=== PATIENT | female | born 1945 | race Caucasian/White ===

== ENCOUNTER → 2020-11-23 | Outpatient (CLI) | payer MEDICARE ==
[~2020-11-23] MED LIST: ACET-76 PO; ACYC-57 PO; B12/1TAB PO; CEPH-376 PO; CHOL10003 PO; FLUC200T4 PO; LOPE2TAB28 PO; METF500T17 PO; RAMI5CAP57 PO; UBID200C35 PO; VITA1TAB29 PO
[2020-11-23 13:32] LABS: MEAN CORPUSCULAR HEMOGLOBIN 30.7 pg (27.0-34.8); MEAN CORPUSCULAR HGB CONC 33.7 g/dL (32.4-35.8); MEAN PLATELET VOLUME 9.9 fL (7.4-10.4); RED BLOOD COUNT 2.57 x10^6/uL (3.82-5.3); RED CELL DISTRIBUTION WIDTH 15.7 % (9.6-15.2)
[2020-11-23 13:40] LABS: ANION GAP 3 mmol/L (5-15); CALCIUM 8.6 mg/dL (8.5-10.1); CHLORIDE 111 mmol/L (98-107); CREATININE 0.67 mg/dL (0.55-1.02)
[2020-11-23 16:22] LABS: PLATELET COUNT 27 x10^3/uL (130-400)
[2020-11-23 16:23] LABS: MD YES
[2020-11-23 18:06] LABS: LYMPH#(MANUAL) 0.78 x10^3/uL (1-3.4); LYMPHS% (MANUAL) 87 % (22-44); MONOS#(MANUAL) 0.01 x10^3/uL (0.3-2.7); MONOS% (MANUAL) 1 % (2-9); REACTIVE LYMPHS # (MANUAL) 0.07 x10^3/uL (0-0); REACTIVE LYMPHS % (MANUAL) 8 % (0-0); SEG#(MANUAL) 0.04 x10^3/uL (1.8-6.8); SEGS% (MANUAL) 4 % (42-75)
[2020-11-23 18:07] LABS: <PLATELET ESTIMATE> DECREASED; LARGE PLATELETS 1+
[2020-11-23 18:08] LABS: ANISOCYTOSIS 1+; MICROCYTOSIS 1+
[2020-11-23 18:09] LABS: HYPOCHROMIA 1+; STOMATOCYTES 1+
== END | disposition home or self-care (01) ==
LOC: LAB 13:05
PROVIDERS: ATTEND Ophthalmology
DX: Z01.812 Encounter for preprocedural laboratory examination (principal); R04.2 Hemoptysis; H04.412 Chronic dacryocystitis of left lacrimal passage; H04.552 Acquired stenosis of left nasolacrimal duct; H02.115 Cicatricial ectropion of left lower eyelid
CPT/HCPCS: 36415; 80048; 85025

== ENCOUNTER 2020-12-26 17:05 | Outpatient (CLI) | payer MEDICARE ==
[2020-12-26 17:36] LABS: MEAN CORPUSCULAR HEMOGLOBIN 31.4 pg (27.0-34.8); MEAN CORPUSCULAR HGB CONC 33.1 g/dL (32.4-35.8); MEAN PLATELET VOLUME 8.9 fL (7.4-10.4); RED CELL DISTRIBUTION WIDTH 19.7 % (9.6-15.2)
[2020-12-26 17:43] LABS: ALBUMIN 3.7 g/dL (3.4-5.0); ANION GAP 10 mmol/L (5-15); CALCIUM 8.5 mg/dL (8.5-10.1); CHLORIDE 110 mmol/L (98-107)
[2020-12-26 17:46] LABS: PLATELET COUNT 29 x10^3/uL (130-400)
[2020-12-26 17:54] LABS: ANISOCYTOSIS 1+; BASOS#(MANUAL) 0.01 x10^3/uL (0-0.1); BASOS% (MANUAL) 1 % (0-1); EOS#(MANUAL) 0.04 x10^3/uL (0.0-0.4); EOS% (MANUAL) 6 % (1-7); LYMPH#(MANUAL) 0.32 x10^3/uL (1-3.4); LYMPHS% (MANUAL) 45 % (22-44); MONOS#(MANUAL) 0.06 x10^3/uL (0.3-2.7); MONOS% (MANUAL) 9 % (2-9); OVALOCYTES 1+; SEG#(MANUAL) 0.27 x10^3/uL (1.8-6.8); SEGS% (MANUAL) 39 % (42-75)
[2020-12-26 17:55] LABS: <PLATELET ESTIMATE> DECREASED; LARGE PLATELETS 1+; POLYCHROMASIA 1+; TARGET CELLS 1+
[2020-12-26 18:08] LABS: ALANINE AMINOTRANSFERASE 56 U/L (12-78); ALKALINE PHOSPHATASE 68 U/L (45-117); BILIRUBIN,TOTAL 0.7 mg/dL (0.2-1.0); CHOL/HDL RATIO 1.8; CHOLESTEROL, TOTAL 97 mg/dL (140-239); CREATININE 0.81 mg/dL (0.55-1.02); FOLATE LEVEL 13.8 ng/mL (3.1-17.5); HDL CHOL % 56 % (28-40); HDL CHOLESTEROL (DIRECT) 54 mg/dL (40-60); LDL CHOLESTEROL,CALCULATED 15 mg/dL (54-169); LDL/HDL RATIO 0.3 (0.5-3.0); TOTAL PROTEIN 6.8 g/dL (6.4-8.2); TRIGLYCERIDES 141 mg/dL (50-200); VLDL CHOLESTEROL 28 mg/dL (0-25)
== END 2020-12-26 23:59 | disposition home or self-care (01) ==
LOC: LAB 17:05
PROVIDERS: ATTEND Nurse Practitioner Family
DX: E11.9 Type 2 diabetes mellitus without complications (principal); Z96.41 Presence of insulin pump (external) (internal); Z79.899 Other long term (current) drug therapy
CPT/HCPCS: 36415; 80053; 80061; 82306; 82607; 82746; 84443; 85025

== ENCOUNTER 2020-12-28 18:43 | Emergency (ER) | payer MEDICARE ==
[~2020-12-28] VITALS: Ht 160 cm; Wt 42.1 kg
[2020-12-28 20:24] LABS: ALANINE AMINOTRANSFERASE 39 U/L (12-78); ALBUMIN 3.4 g/dL (3.4-5.0); ANION GAP 8 mmol/L (5-15); CALCIUM 8.4 mg/dL (8.5-10.1); CHLORIDE 107 mmol/L (98-107); CREATININE 0.87 mg/dL (0.55-1.02)
[2020-12-28 20:26] LABS: ALKALINE PHOSPHATASE 63 U/L (45-117); BILIRUBIN,TOTAL 0.8 mg/dL (0.2-1.0); TOTAL PROTEIN 6.6 g/dL (6.4-8.2)
[2020-12-28 20:39] LABS: MEAN CORPUSCULAR HEMOGLOBIN 31.8 pg (27.0-34.8); MEAN CORPUSCULAR HGB CONC 33.2 g/dL (32.4-35.8); MEAN PLATELET VOLUME 9.2 fL (7.4-10.4); RED BLOOD COUNT 2.21 x10^6/uL (3.82-5.3); RED CELL DISTRIBUTION WIDTH 20.6 % (9.6-15.2)
[2020-12-28 20:57] LABS: PLATELET COUNT 29 x10^3/uL (130-400)
--- NOTE | 2020-12-28 21:03 | NUR ---
THIS IS A 75F THAT COMES IN FOR R FOOT/ ANKLE PAIN. PT CONNECTED TO ALL MONITORING VSS, NADN. PT AGGITATED AND CONTINUES TO VERBALIZE FRUSTRATION ABOUT CARE PREVIOUSLY RECIEVED.
[2020-12-28 21:05] LABS: SEG#(MANUAL) 0.45 x10^3/uL (1.8-6.8); SEGS% (MANUAL) 30 % (42-75)
[2020-12-28 21:06] LABS: BASOS#(MANUAL) 0.02 x10^3/uL (0-0.1); BASOS% (MANUAL) 1 % (0-1); EOS#(MANUAL) 0.08 x10^3/uL (0.0-0.4); EOS% (MANUAL) 5 % (1-7); LYMPH#(MANUAL) 0.87 x10^3/uL (1-3.4); LYMPHS% (MANUAL) 58 % (22-44); MONOS#(MANUAL) 0.09 x10^3/uL (0.3-2.7); MONOS% (MANUAL) 6 % (2-9)
[2020-12-28 21:10] LABS: ANISOCYTOSIS 1+
[2020-12-28 21:11] LABS: POLYCHROMASIA 1+
[2020-12-28 21:12] LABS: <PLATELET ESTIMATE> DECREASED; OVALOCYTES 1+; STOMATOCYTES 1+
[2020-12-28 21:13] LABS: <PLT MORPHOLOGY> NORMAL PLT MORPH
[2020-12-28 22:26] LABS: TROPONIN I < 0.015 ng/mL (0.000-0.045)
--- NOTE | 2020-12-28 22:28 | NUR ---
PIV STARTED PT RESTING ON JACKIE KESSLER
[2020-12-28 23:20] VITALS: BP 145/42
--- NOTE | 2020-12-28 23:20 | NUR ---
BLOOD VERIFIED AND STARTED WITH BEKAH VENTURA.
[2020-12-28 23:35] VITALS: BP 150/53
--- NOTE | 2020-12-29 00:18 | NUR ---
BLOOD CONTINUES TO TRANSFUSE W/OUT DIFFICULTY PT DENIES ANY ADVERSE EFFECTS
[2020-12-29 00:51] VITALS: BP 152/53
--- NOTE | 2020-12-29 00:59 | NUR ---
Patient/Caregiver given discharge instructions and they have confirmed that they understand the instructions. Patient ambulatory with steady gait. NAD, all questions answered appropriately, denies additional needs at this time. No personal belongings left in room after discharge.
== END 2020-12-29 01:00 | disposition home or self-care (01) ==
LOC: ED 12-29 00:58
DX: S92.344A Nondisplaced fracture of fourth metatarsal bone, right foot, initial encounter for closed fracture (principal); S92.354A Nondisplaced fracture of fifth metatarsal bone, right foot, initial encounter for closed fracture; D69.3 Immune thrombocytopenic purpura; D63.8 Anemia in other chronic diseases classified elsewhere; R06.02 Shortness of breath; R53.1 Weakness; R55 Syncope and collapse; R00.0 Tachycardia, unspecified; R07.9 Chest pain, unspecified; I10 Essential (primary) hypertension; E11.9 Type 2 diabetes mellitus without complications; F17.200 Nicotine dependence, unspecified, uncomplicated; X58.XXXA Exposure to other specified factors, initial encounter; Y93.89 Activity, other specified; Y92.89 Other specified places as the place of occurrence of the external cause; Y99.8 Other external cause status
CPT/HCPCS: 29515; 36415; 36430; 71045; 73610; 73630; 80053; 83880; 84484; 85025; 86850; 86900; 86923; 93005; 99285; P9040

== ENCOUNTER 2021-01-15 10:11 | Emergency (ER) | payer MEDICARE ==
[~2021-01-15] VITALS: Ht 157.5 cm; Wt 44.0 kg
--- NOTE | 2021-01-15 10:22 | NUR ---
PT BIB EMS. "I HAVE LEUKEMIA AND MY BLOOD AND PLATELETS ARE LOW. I STARTED FEELING WEAK THIS MORNING AND IM HAVING BRUISES ON MY HANDS SHOW UP OUT OF NO WHERE. I HAVE TO GET BLOOD FROM TIME TO TIME". PT RESTING IN [facility]. CONNECTED TO ALL MONITORS. BLANKET PROVIDED.
--- NOTE | 2021-01-15 10:25 | NUR ---
Protective precautions placed (signage/cart/charting)
[2021-01-15] MEDS ORDERED: SODIUM CHLORIDE FLUSH 10ML SYR IVF ONE (10:30)
[2021-01-15 10:54] LABS: RED BLOOD COUNT 2.42 x10^6/uL (3.82-5.3); RED CELL DISTRIBUTION WIDTH 23.8 % (9.6-15.2)
[2021-01-15 10:57] LABS: ALANINE AMINOTRANSFERASE 30 U/L (12-78); ALBUMIN 3.2 g/dL (3.4-5.0); ANION GAP 5 mmol/L (5-15); CALCIUM 8.6 mg/dL (8.5-10.1); CHLORIDE 110 mmol/L (98-107); CREATININE 0.78 mg/dL (0.55-1.02)
[2021-01-15 11:00] LABS: ALKALINE PHOSPHATASE 37 U/L (45-117); BILIRUBIN,TOTAL 0.5 mg/dL (0.2-1.0); TOTAL PROTEIN 6.3 g/dL (6.4-8.2)
[2021-01-15 11:18] LABS: PLATELET COUNT 39 x10^3/uL (130-400)
[2021-01-15 11:41] LABS: ANISOCYTOSIS 1+; BAND#(MANUAL) 0.01 x10^3/uL; BANDS%(MANUAL) 1 % (0-7); EOS#(MANUAL) 0.01 x10^3/uL (0.0-0.4); EOS% (MANUAL) 1 % (1-7); LYMPH#(MANUAL) 0.49 x10^3/uL (1-3.4); LYMPHS% (MANUAL) 82 % (22-44); MONOS#(MANUAL) 0.01 x10^3/uL (0.3-2.7); MONOS% (MANUAL) 2 % (2-9); OVALOCYTES 1+; POLYCHROMASIA 1+; SEG#(MANUAL) 0.08 x10^3/uL (1.8-6.8); SEGS% (MANUAL) 14 % (42-75)
[2021-01-15 11:42] LABS: BASOPHILLIC STIPPLING 1+; STOMATOCYTES 1+
[2021-01-15 11:43] LABS: <PLATELET ESTIMATE> DECREASED; TEAR DROPS 1+
[2021-01-15 11:47] LABS: <PLT MORPHOLOGY> NORMAL PLT MORPH
--- NOTE | 2021-01-15 11:51 | NUR ---
Blood consent obtained [facility] blood request form tubed to blood bank at 1150a
[2021-01-15 12:01] VITALS: BP 145/70
[2021-01-15] MEDS ORDERED: ACETAMINOPHEN 500 MG TABLET ONE (12:08)
[2021-01-15 12:16] VITALS: BP 170/75
--- NOTE | 2021-01-15 12:52 | NUR ---
no trouble with infusion rate increased from 125 to 200/hr patient updated on poc
[2021-01-15] MEDS ORDERED: ACETAMINOPHEN 500 MG TABLET PO ONE (13:00)
--- NOTE | 2021-01-15 13:59 | NUR ---
REPORT FROM BARBARA. PT IN BED, BLOOD TRANSFUSING. CALL LIGHT IN REACH
--- NOTE | 2021-01-15 14:11 | NUR ---
report to gege rollins (approx 100ml of blood remaining)
--- NOTE | 2021-01-15 14:42 | NUR ---
BLOOD TRANSFUSION COMPLETE.
[2021-01-15 14:45] VITALS: BP 150/76
--- NOTE | 2021-01-15 15:10 | NUR ---
Patient given discharge instructions and they have confirmed that they understand the instructions. Patient ambulatory with steady gait.
--- NOTE | 2021-01-15 15:10 | NUR ---
IV REMOVED. PT FEELING OK, AMBULATED TO WHEELCHAIR W STEADY GAIT.
[2021-01-15 15:11] VITALS: BP 150/76
== END 2021-01-15 15:12 | disposition home or self-care (01) ==
LOC: ED 10:36
DX: D64.81 Anemia due to antineoplastic chemotherapy (principal); R42 Dizziness and giddiness; R53.83 Other fatigue; R19.7 Diarrhea, unspecified; E11.9 Type 2 diabetes mellitus without complications; Z85.6 Personal history of leukemia
CPT/HCPCS: 36415; 36430; 80053; 85025; 86850; 86900; 86923; 99285; P9040

== ENCOUNTER 2021-02-23 09:35 | Emergency (ER) | payer MEDICARE ==
[~2021-02-23] VITALS: Ht 157.5 cm; Wt 43.0 kg
--- NOTE | 2021-02-23 10:14 | NUR ---
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
[2021-02-23 11:11] LABS: ALBUMIN 3.5 g/dL (3.4-5.0); ANION GAP 7 mmol/L (5-15); CALCIUM 8.6 mg/dL (8.5-10.1); CHLORIDE 112 mmol/L (98-107); CREATININE 0.62 mg/dL (0.55-1.02)
[2021-02-23 11:20] LABS: RED BLOOD COUNT 2.43 x10^6/uL (3.82-5.3)
--- NOTE | 2021-02-23 11:20 | NUR ---
Pt states "I'm here for radiated blood". "That's what the doctor's have said" States she was Dx'd with Leukemia. Presents DC document from 01/15/21 [facility] w/ dx of anemia associated w/ cancer. Presents lab document dated 12/26/20. States she received radiated blood here in December and January.
[2021-02-23 11:21] LABS: MEAN CORPUSCULAR HEMOGLOBIN 30.6 pg (27.0-34.8); MEAN CORPUSCULAR HGB CONC 31.9 g/dL (32.4-35.8); MEAN PLATELET VOLUME 8.7 fL (7.4-10.4); RED CELL DISTRIBUTION WIDTH 23.4 % (9.6-15.2)
[2021-02-23 11:26] LABS: PLATELET COUNT 26 x10^3/uL (130-400)
--- NOTE | 2021-02-23 11:33 | NUR ---
ERP at BS
[2021-02-23 11:53] LABS: SEG#(MANUAL) 0.11 x10^3/uL (1.8-6.8); SEGS% (MANUAL) 12 % (42-75)
[2021-02-23 11:56] LABS: LYMPH#(MANUAL) 0.77 x10^3/uL (1-3.4); LYMPHS% (MANUAL) 86 % (22-44); MONOS#(MANUAL) 0.02 x10^3/uL (0.3-2.7); MONOS% (MANUAL) 2 % (2-9)
[2021-02-23 11:57] LABS: ANISOCYTOSIS 1+; OVALOCYTES 1+; POLYCHROMASIA 1+; STOMATOCYTES 1+; TEAR DROPS 1+
[2021-02-23 11:59] LABS: <PLATELET ESTIMATE> DECREASED; <PLT MORPHOLOGY> NORMAL PLT MORPH
[2021-02-23] MEDS ORDERED: METF-754 PO (12:13)
--- NOTE | 2021-02-23 12:26 | NUR ---
Blood slip sent to Blood Bank
[2021-02-23 13:03] VITALS: BP 145/35
--- NOTE | 2021-02-23 13:07 | NUR ---
Transfusion initiated. Pt eating [employer] brendan la Coke. Bear warmer in use. Side rail up x1, call light w/in reach.
[2021-02-23 13:20] VITALS: BP 164/65
--- NOTE | 2021-02-23 13:23 | NUR ---
Pt eating and drinking w/out difficulty. Denies adverse reactions to transfusion.
[2021-02-23 13:35] VITALS: BP 164/65
[2021-02-23 13:50] VITALS: BP 146/64
[2021-02-23 14:01] VITALS: BP 153/40
[2021-02-23 14:30] VITALS: BP 153/49
--- NOTE | 2021-02-23 14:41 | NUR ---
Blood transfusion completed.
== END 2021-02-23 15:06 | disposition home or self-care (01) ==
LOC: ED 10:45
DX: D61.3 Idiopathic aplastic anemia (principal); E11.9 Type 2 diabetes mellitus without complications; F17.200 Nicotine dependence, unspecified, uncomplicated
CPT/HCPCS: 36415; 36430; 80048; 82040; 85025; 86850; 86900; 86923; 99285; P9040